=== PATIENT | male | born 1945 | race Caucasian/White ===

== ENCOUNTER 2017-09-05 11:56 | Inpatient (IN) | payer OTHER ==
[2017-09-05 12:58] LABS: ADD MAN DIFF? NO
[2017-09-05 13:01] LABS: BASOPHILS % 0.5 % (0.0-2.0); EOSINOPHILS # 0.3 10^3/ul (0.0-0.5); EOSINOPHILS % 3.8 % (0.0-7.0); HEMATOCRIT 39.1 % (42.0-52.0); HEMOGLOBIN 12.8 g/dl (14.0-18.0); LYMPHOCYTES # 2.6 10^3/ul (0.8-2.9); LYMPHOCYTES % 40.4 % (15.0-51.0); MEAN CORPUSCULAR HEMOGLOBIN 29.8 pg (29.0-33.0); MEAN CORPUSCULAR HGB CONC 32.7 g/dl (32.0-37.0); MEAN CORPUSCULAR VOLUME 90.9 fl (82.0-101.0); MEAN PLATELET VOLUME 10.3 fl (7.4-10.4); MONOCYTE # 0.5 10^3/ul (0.3-0.9); MONOCYTES % 8.3 % (0.0-11.0); NEUTROPHIL # 3.1 10^3/ul (1.6-7.5); NEUTROPHILS % 46.7 % (39.0-77.0); PLATELET COUNT 236 10^3/UL (140-415); RED CELL DISTRIBUTION WIDTH 13.9 % (11.5-14.5)
[2017-09-05 13:01] LABS: WHITE BLOOD COUNT 6.5 10^3/ul (4.8-10.8)
[2017-09-05 13:21] LABS: LACTIC ACID 2.3 mmol/L (0.5-2.0)
[2017-09-05 13:22] LABS: ANION GAP 13 (8-16); BLOOD UREA NITROGEN 23 mg/dl (7-20); CALCIUM 9.9 mg/dl (8.4-10.2); CARBON DIOXIDE 27 mmol/L (21-31); CHLORIDE 108 mmol/L (97-110); CREATININE 0.66 mg/dl (0.61-1.24); GLUCOSE 153 mg/dl (70-220); POTASSIUM 5.3 mmol/L (3.5-5.1); SODIUM 143 mmol/L (135-144)
[2017-09-05 13:23] LABS: C-REACTIVE PROTEIN < 0.5 mg/dl (0.0-0.9)
[2017-09-05] MEDS: SODIUM CHLORIDE 0.9% 1L BAG IV* (13:28)
[2017-09-05] MEDS: CEFEPIME 2GM/50 ML (PMX) 50 ML IVPB (13:28)
[2017-09-05] MEDS: VANCOMYCIN 1 GM (PMX) 250 ML IVPB (14:00)
[2017-09-05] MEDS ORDERED: ACETAMINOPHEN 325 MG TAB PO ×2 (15:30→17:30)
[2017-09-05] MEDS ORDERED: ONDANSETRON 4 MG INJ IV ×2 (15:30→17:30)
[2017-09-05 17:16] LABS: LACTIC ACID 1.1 mmol/L (0.5-2.0)
[2017-09-05] MEDS ORDERED: MAGNESIUM HYDROXIDE 30ML CUP PO (17:30)
[2017-09-05] MEDS ORDERED: VANCOMYCIN IV PER PHARMACY XX (17:30)
[2017-09-05] MEDS ORDERED: NACL 0.9% 3 ML SYG IV (17:30)
[2017-09-05] MEDS ORDERED: HYDROCODONE/APAP (5/325) TAB PO (17:30)
[2017-09-05] MEDS ORDERED: DOCUSATE SODIUM 100 MG CAP PO (17:30)
[2017-09-05] MEDS ORDERED: morphine 2 MG INJ IV (17:30)
[2017-09-05] MEDS ORDERED: BISACODYL 10 MG SUPP PR (17:30)
[2017-09-05] MEDS: SOD CHLORIDE 0.9% 1,000 ML IV (17:45)
[2017-09-05] MEDS ORDERED: DEXTROSE 50% 50 ML SYRINGE IV ×2 (18:00)
[2017-09-05] MEDS ORDERED: GLUCOSE GEL 15 GRAM TUBE PO ×2 (18:00)
[2017-09-05] MEDS ORDERED: GLUCOSE GEL 15 GRAM TUBE BUCCAL (18:00)
[2017-09-05] MEDS ORDERED: GLUCAGON 1 MG INJ IM (18:00)
[2017-09-05] MEDS: INSULIN ASPART [NOVOLOG] 3 ML PEN SC ×3 (18:05→20:32)
[2017-09-05] MEDS: VANCOMYCIN 500MG/NS (PMX) 100 ML IVPB (18:56)
[2017-09-05] MEDS: INSULIN GLARGINE [LANtus] 3 ML PEN SC (20:31)
[2017-09-05] MEDS: FAMOTIDINE 20 MG TAB PO (20:32)
[2017-09-05] MEDS: ATORVASTATIN 40 MG TAB PO (20:32)
[2017-09-05] MEDS: GABAPENTIN 300 MG CAP PO (20:32)
[2017-09-05] MEDS: CEFEPIME 1GM/50 ML (PMX) 50 ML IVPB (22:52)
[2017-09-06] MEDS: ACCU-CHEK XX (01:30)
[2017-09-06] MEDS: VANCOMYCIN 1 GM 250 ML IVPB ×2 (03:52→15:37)
[2017-09-06 05:36] LABS: ADD MAN DIFF? NO
[2017-09-06 05:45] LABS: BASOPHILS % 0.4 % (0.0-2.0); EOSINOPHILS # 0.3 10^3/ul (0.0-0.5); EOSINOPHILS % 5.5 % (0.0-7.0); HEMATOCRIT 36.1 % (42.0-52.0); LYMPHOCYTES # 2.9 10^3/ul (0.8-2.9); LYMPHOCYTES % 51.8 % (15.0-51.0); MEAN CORPUSCULAR HEMOGLOBIN 29.9 pg (29.0-33.0); MEAN CORPUSCULAR HGB CONC 33.2 g/dl (32.0-37.0); MEAN CORPUSCULAR VOLUME 89.8 fl (82.0-101.0); MEAN PLATELET VOLUME 10.3 fl (7.4-10.4); MONOCYTE # 0.5 10^3/ul (0.3-0.9); MONOCYTES % 8.1 % (0.0-11.0); NEUTROPHIL # 1.9 10^3/ul (1.6-7.5); PLATELET COUNT 201 10^3/UL (140-415); RED BLOOD COUNT 4.02 10^6/ul (4.70-6.10); RED CELL DISTRIBUTION WIDTH 13.8 % (11.5-14.5)
[2017-09-06 05:45] LABS: WHITE BLOOD COUNT 5.7 10^3/ul (4.8-10.8)
[2017-09-06] MEDS: SOD CHLORIDE 0.9% 1,000 ML IV (05:54)
[2017-09-06 06:03] LABS: ALANINE AMINOTRANSFERASE 34 IU/L (13-69); ALBUMIN 2.7 g/dl (3.3-4.9); ALBUMIN/GLOBULIN RATIO 0.93; ALKALINE PHOSPHATASE 76 IU/L (42-121); ANION GAP 5 (8-16); ASPARTATE AMINO TRANSFERASE 21 IU/L (15-46); BILIRUBIN,INDIRECT 0.4 mg/dl (0-1.1); BILIRUBIN,TOTAL 0.4 mg/dl (0.2-1.3); BLOOD UREA NITROGEN 17 mg/dl (7-20); CALCIUM 9.1 mg/dl (8.4-10.2); CARBON DIOXIDE 28 mmol/L (21-31); CHLORIDE 112 mmol/L (97-110); CREATININE 0.57 mg/dl (0.61-1.24); GLUCOSE 81 mg/dl (70-220); MAGNESIUM 1.6 mg/dl (1.7-2.5); PHOSPHORUS 5.1 mg/dl (2.5-4.9); POTASSIUM 4.2 mmol/L (3.5-5.1); SODIUM 141 mmol/L (135-144); TOTAL PROTEIN 5.6 g/dl (6.1-8.1)
[2017-09-06 06:09] LABS: HEMOGLOBIN A1C 8.5 % (0-5.9)
[2017-09-06] MEDS: INSULIN ASPART [NOVOLOG] 3 ML PEN SC ×6 (08:00→17:55)
[2017-09-06] MEDS: CEFEPIME 1GM/50 ML (PMX) 50 ML IVPB (08:19)
[2017-09-06] MEDS: ENOXAPARIN 40 MG/0.4 ML SYG SC (08:19)
[2017-09-06] MEDS: GABAPENTIN 300 MG CAP PO ×2 (08:20→12:18)
[2017-09-06] MEDS: FAMOTIDINE 20 MG TAB PO (08:20)
[2017-09-06] MEDS: LISINOPRIL 20 MG TAB PO (08:20)
[2017-09-06] MEDS ORDERED: SODIUM HYPOCHLORITE 1/40% 1L IRRIG IRR (11:00)
[2017-09-06] MEDS: SODIUM HYPOCHLORITE 0.125% 473 ML BTL IRR (14:37)
[2017-09-06] MEDS: HYDROCODONE/APAP (5/325) TAB PO (14:37)
[2017-09-06] MEDS ORDERED: morphine LIQ (10 MG/5 ML) CUP PO (18:00)
== END 2017-09-06 18:42 | disposition home health service (06) | DRG 988 ==
LOC: E/R 11:56 → PP2 15:15
PROVIDERS: Internal Medicine
PROC: 0MBS0ZZ Excision of Right Foot Bursa and Ligament, Open Approach (ICD-10-PCS; principal; 2017-09-06)
DX: E11.621 Type 2 diabetes mellitus with foot ulcer (principal); M86.671 Other chronic osteomyelitis, right ankle and foot; L97.519 Non-pressure chronic ulcer of other part of right foot with unspecified severity; E11.42 Type 2 diabetes mellitus with diabetic polyneuropathy; E78.5 Hyperlipidemia, unspecified; I10 Essential (primary) hypertension; E11.69 Type 2 diabetes mellitus with other specified complication; E11.65 Type 2 diabetes mellitus with hyperglycemia
CPT/HCPCS: 36415; 73660; 73718; 80048; 80053; 82962; 83036; 83605; 83735; 84100; 85025; 85651; 86140; 87040; 87070; 93923; 96361; 96365; 96375; 99285-25

== ENCOUNTER 2017-09-30 13:19 | Day surgery (SDC) | payer OTHER ==
[2017-09-30 13:59] LABS: ADD MAN DIFF? NO
[2017-09-30 14:05] LABS: BASOPHILS % 0.4 % (0.0-2.0); EOSINOPHILS # 0.2 10^3/ul (0.0-0.5); EOSINOPHILS % 2.8 % (0.0-7.0); HEMATOCRIT 37.3 % (42.0-52.0); HEMOGLOBIN 12.5 g/dl (14.0-18.0); LYMPHOCYTES # 2.8 10^3/ul (0.8-2.9); LYMPHOCYTES % 40.3 % (15.0-51.0); MEAN CORPUSCULAR HEMOGLOBIN 30.1 pg (29.0-33.0); MEAN CORPUSCULAR HGB CONC 33.5 g/dl (32.0-37.0); MEAN CORPUSCULAR VOLUME 89.9 fl (82.0-101.0); MEAN PLATELET VOLUME 9.8 fl (7.4-10.4); MONOCYTE # 0.6 10^3/ul (0.3-0.9); MONOCYTES % 9.2 % (0.0-11.0); NEUTROPHIL # 3.2 10^3/ul (1.6-7.5); NEUTROPHILS % 47.2 % (39.0-77.0); PLATELET COUNT 184 10^3/UL (140-415); RED BLOOD COUNT 4.15 10^6/ul (4.70-6.10); RED CELL DISTRIBUTION WIDTH 14.2 % (11.5-14.5)
[2017-09-30 14:05] LABS: WHITE BLOOD COUNT 6.8 10^3/ul (4.8-10.8)
[2017-09-30 14:15] LABS: INR 0.91; PROTIME 12.3 Sec (11.9-14.9)
[2017-09-30 14:21] LABS: ALANINE AMINOTRANSFERASE 31 IU/L (13-69); ALBUMIN 3.8 g/dl (3.3-4.9); ALBUMIN/GLOBULIN RATIO 1.35; ALKALINE PHOSPHATASE 81 IU/L (42-121); ANION GAP 15 (8-16); ASPARTATE AMINO TRANSFERASE 22 IU/L (15-46); BILIRUBIN,INDIRECT 0.4 mg/dl (0-1.1); BILIRUBIN,TOTAL 0.4 mg/dl (0.2-1.3); BLOOD UREA NITROGEN 20 mg/dl (7-20); CALCIUM 9.3 mg/dl (8.4-10.2); CARBON DIOXIDE 27 mmol/L (21-31); CHLORIDE 105 mmol/L (97-110); CREATININE 0.63 mg/dl (0.61-1.24); GLUCOSE 81 mg/dl (70-220); POTASSIUM 4.2 mmol/L (3.5-5.1); SODIUM 143 mmol/L (135-144); TOTAL PROTEIN 6.6 g/dl (6.1-8.1)
[2017-09-30] MEDS ORDERED: LIDOCAINE 1% (MDV) 10 ML INJ (14:25)
[2017-09-30] MEDS ORDERED: MIDAZOLAM 1 MG/ML 2 ML INJ (14:25)
[2017-09-30] MEDS ORDERED: IODIXANOL LOCM 100 ML BTL (14:25)
[2017-09-30] MEDS ORDERED: HEPARIN 1000 UNITS/NS (A-LINE) 1,000 ML (14:25)
[2017-09-30] MEDS ORDERED: FENTAnyl 50 MCG/ML VIAL (14:25)
[2017-09-30] MEDS ORDERED: HEPARIN 1000 UNITS/ML 10 ML INJ (14:55)
[2017-09-30] MEDS ORDERED: LABETALOL HCL 20MG INJ (15:34)
[2017-09-30] MEDS ORDERED: CLOPIDOGREL 300 MG TAB (15:36)
[2017-09-30] MEDS ORDERED: CLOPIDOGREL 75 MG TAB PO (16:00)
== END 2017-09-30 17:46 | disposition home or self-care (01) ==
LOC: CCL 13:19 → SDS 13:19 → CCL 17:46
DX: L97.519 Non-pressure chronic ulcer of other part of right foot with unspecified severity (principal)
CPT/HCPCS: 37228; 76937; 80053; 82962; 85025; 85610; 85730

== ENCOUNTER 2017-10-29 14:53 | Day surgery (SDC) | payer OTHER ==
[~2017-10-29 14:53] MED LIST: LIDOCAINE 2% (SDV) 5 ML INJ; SOD CHLORIDE 0.45% 1,000 ML IV
[2017-10-29 15:57] LABS: ADD MAN DIFF? NO
[2017-10-29 15:58] LABS: WHITE BLOOD COUNT 7.2 10^3/ul (4.8-10.8)
[2017-10-29 15:58] LABS: BASOPHILS % 0.6 % (0.0-2.0); EOSINOPHILS # 0.2 10^3/ul (0.0-0.5); EOSINOPHILS % 3.2 % (0.0-7.0); HEMATOCRIT 36.3 % (42.0-52.0); HEMOGLOBIN 12.1 g/dl (14.0-18.0); LYMPHOCYTES # 2.4 10^3/ul (0.8-2.9); LYMPHOCYTES % 33.3 % (15.0-51.0); MEAN CORPUSCULAR HEMOGLOBIN 30.8 pg (29.0-33.0); MEAN CORPUSCULAR HGB CONC 33.3 g/dl (32.0-37.0); MEAN CORPUSCULAR VOLUME 92.4 fl (82.0-101.0); MEAN PLATELET VOLUME 10.8 fl (7.4-10.4); MONOCYTE # 0.6 10^3/ul (0.3-0.9); MONOCYTES % 8.7 % (0.0-11.0); NEUTROPHIL # 3.9 10^3/ul (1.6-7.5); NEUTROPHILS % 53.9 % (39.0-77.0); PLATELET COUNT 183 10^3/UL (140-415); RED BLOOD COUNT 3.93 10^6/ul (4.70-6.10); RED CELL DISTRIBUTION WIDTH 14.7 % (11.5-14.5)
[2017-10-29 16:16] LABS: INR 0.95; PROTIME 12.8 Sec (11.9-14.9)
[2017-10-29 16:17] LABS: PARTIAL THROMBOPLASTIN TIME 32.9 Sec (25.0-35.0)
[2017-10-29 16:18] LABS: ANION GAP 8 (8-16); BLOOD UREA NITROGEN 17 mg/dl (7-20); CALCIUM 9.3 mg/dl (8.4-10.2); CARBON DIOXIDE 29 mmol/L (21-31); CHLORIDE 111 mmol/L (97-110); CREATININE 0.62 mg/dl (0.61-1.24); GLUCOSE 74 mg/dl (70-220); POTASSIUM 4.2 mmol/L (3.5-5.1); SODIUM 144 mmol/L (135-144)
[2017-10-29] MEDS ORDERED: CEFAZOLIN 1 GM INJ (17:30)
[2017-10-29] MEDS ORDERED: DIPHENHYDRAMINE 50 MG INJ IV (17:30)
[2017-10-29] MEDS ORDERED: PROPOFOL 20 ML (17:30)
[2017-10-29] MEDS: LIDOCAINE 1% (MPF) 30 ML INJ (17:30)
[2017-10-29] MEDS ORDERED: FENTAnyl 50 MCG/ML VIAL IV ×2 (17:30)
[2017-10-29] MEDS ORDERED: ONDANSETRON 4 MG INJ IV (17:30)
[2017-10-29] MEDS ORDERED: HYDROmorphONE 1 MG/5 ML IV SYRINGE IV ×2 (17:30)
[2017-10-29] MEDS ORDERED: MEPERIDINE 25 MG INJ IV (17:30)
[2017-10-29] MEDS ORDERED: METOCLOPRAMIDE 10 MG INJ IV (17:30)
[2017-10-29] MEDS ORDERED: ALBUTEROL 0.083% (NEB) 2.5 MG/3 ML AMP HHN (17:30)
[2017-10-29] MEDS ORDERED: hydrALAzine 20 MG INJ (17:33)
== END 2017-10-29 19:52 | disposition home or self-care (01) ==
LOC: SDS 14:53
DX: E11.621 Type 2 diabetes mellitus with foot ulcer (principal); L97.519 Non-pressure chronic ulcer of other part of right foot with unspecified severity; I73.9 Peripheral vascular disease, unspecified; E11.42 Type 2 diabetes mellitus with diabetic polyneuropathy
CPT/HCPCS: 11042; 80048; 82962; 85025; 85610; 85730; 87070; 87102